=== PATIENT | male | born 1995 | race African-American/Black ===

== ENCOUNTER 2017-04-29 03:37 | Emergency (ER) | payer MEDICAID ==
[~2017-04-29 03:37] MED LIST: DOCUSATE CALCI240 MG PO; KEFLEX500 MG ORAL; SEROQUEL50 MG ORAL
== END 2017-04-29 03:48 | disposition left against medical advice (07) ==
LOC: EMR 03:48
DX: Z53.21 Procedure and treatment not carried out due to patient leaving prior to being seen by health care provider (principal)